=== PATIENT | female | born 1970 | race Caucasian/White ===

== ENCOUNTER 2017-09-02 09:03 | Inpatient (IN) | payer OTHER ==
[2017-09-02 09:33] VITALS: BMI 54.3
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
[2017-09-02] MEDS ORDERED: LOPERAMIDE HCL 2 MG CAPSULE PO PRN (12:07)
[2017-09-02] MEDS ORDERED: guaiFENesin/D-METHORPHAN HB 10 ML UNIT-DOSE CUPS PO PRN (12:07)
[2017-09-02] MEDS ORDERED: IBUPROFEN 400 MG TABLET (FP) PO PRN (12:07)
[2017-09-02] MEDS ORDERED: P-EPHED 60MG/TRIPROLIDI 2.5MG TABLET PO PRN (12:07)
[2017-09-02] MEDS ORDERED: MAGNESIUM CITRATE 300 ML BOTTLE PO PRN (12:07)
[2017-09-02] MEDS ORDERED: MAGNESIUM HYDROX 2400MG/30ML ORAL SUSPENSION 30 ML CUP PO PRN (12:07)
[2017-09-02] MEDS ORDERED: MAG HYDROX/AL HYDROX/SIMETH 30 ML UNIT-DOSE CUP PO PRN (12:07)
[2017-09-02] MEDS ORDERED: ACETAMINOPHEN 325 MG TABLET (FP) PO PRN (12:07)
[2017-09-02] MEDS ORDERED: MENTHOL/PHENOL 1 EACH UD MM PRN (12:07)
[2017-09-02] MEDS ORDERED: METHADONE HCL 10 MG TABLET (FOR DETOX USE ONLY) PO ONE ×2 (13:00→23:00)
[2017-09-02] MEDS: diazePAM 5 MG TABLET PO PRN ×3 (13:03→22:40)
[2017-09-02] MEDS: NICOTINE 21 MG/24 HOURS TOPICAL PATCH TD SCH (13:05)
[2017-09-02 17:59] LABS: URINE APPEARANCE CLEAR; URINE BILIRUBIN NEGATIVE (<2.0 mg/dL); URINE COLOR YELLOW; URINE GLUCOSE (UA) NEGATIVE (NEGATIVE); URINE KETONE NEGATIVE (NEGATIVE); URINE LEUK ESTERASE NEGATIVE (NEGATIVE); URINE NITRITE NEGATIVE (NEGATIVE); URINE PROTEIN NEGATIVE (NEGATIVE); URINE UROBILINOGEN NEGATIVE mg/dL (0.2-1.0)
[2017-09-02] MEDS ORDERED: MELATONIN 5 MG TABLETS PO PRN (22:00)
[2017-09-02] MEDS: THIAMINE HCL 100 MG TABLET (FP) PO SCH (22:36)
[2017-09-03] MEDS: diazePAM 5 MG TABLET PO PRN ×3 (05:53→18:03)
[2017-09-03] MEDS ORDERED: METHADONE HCL 10 MG TABLET (FOR DETOX USE ONLY) PO ONE (10:00)
[2017-09-03] MEDS: PRENATAL VITAMINS W/ FOLIC ACID TABLET (FP) PO SCH (10:44)
[2017-09-03] MEDS: NICOTINE 21 MG/24 HOURS TOPICAL PATCH TD SCH (10:44)
[2017-09-03 11:15] LABS: HEMATOCRIT 39.6 % (32.4-45.2); HEMOGLOBIN 13.4 GM/dL (10.7-15.3); MCH 31.5 pg (25.7-33.7); MCHC 33.7 g/dl (32.0-36.0); MEAN CELL VOLUME 93.3 fl (80-96); MEAN PLT VOLUME 7.5 fl (7.5-11.1); PLATELET COUNT 236 K/MM3 (134-434); RBC 4.25 M/mm3 (3.60-5.2); RDW 14.7 % (11.6-15.6); WHITE BLOOD COUNT 8.8 K/mm3 (4.0-10.0)
[2017-09-03 11:21] LABS: ALBUMIN 3.1 g/dl (3.4-5.0); ANION GAP 4 (8-16); BLOOD UREA NITROGEN 12 mg/dL (7-18); CALCIUM 8.5 mg/dL (8.5-10.1); CHLORIDE 105 mmol/L (98-107); CO2 30 mmol/L (21-32); GLUCOSE,RANDOM 98 mg/dL (74-106); POTASSIUM 4.1 mmol/L (3.5-5.1); SGOT/AST 14 U/L (15-37); SGPT/ALT 23 U/L (12-78); SODIUM 139 mmol/L (136-145)
[2017-09-03] MEDS ORDERED: COLLOIDAL OATMEAL 1 BAR EACH TP PRN (12:45)
[2017-09-03 13:10] LABS: ALK PHOS 99 U/L (45-117); BILIRUBIN,TOTAL 0.3 mg/dL (0.2-1.0); TOT PROT 6.2 g/dl (6.4-8.2)
[2017-09-03 13:43] LABS: CREATININE 0.6 mg/dL (0.55-1.02)
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
--- NOTE | 2017-09-03 15:19 | PN ---
BHS COWS - Scale Resting Pulse: 0= [place] 80 or Below Sweatin= Chills/Flushing Restless Observation: 1= Difficult to Sit Still Pupil Size: 1= Pupils >than Normal Bone or Joint Aches: 2= Severe Diffuse Aches Runny Nose/ Eye Tearin= Nasal Congestion GI Upset > 30mins: 1= Stomach Cramp Tremor Observation of Outstretched Hands: 2= Slight Tremor Visible Yawning Observation: 1= 1-2x During Session Anxiety or Irritability: 1=Feels Anxious/Irritable Goose Flesh Skin: 0=Smooth Skin COWS Score: 11 BHS Progress Note (SOAP) Subjective: joints pain body ache sweat tremor gi distress right sling in place patient is able to dress herself and rotate right shoulder Objective: 09/03/17 15:18 Vital Signs Temperature 99.3 F 09/03/17 13:13 Pulse Rate 84 09/03/17 13:13 Respiratory Rate 18 09/03/17 13:13 Blood Pressure 114/76 09/03/17 13:13 O2 Sat by Pulse Oximetry (%) Laboratory Last Values WBC 8.8 K/mm3 (4.0-10.0) 09/03/17 07:30 RBC 4.25 M/mm3 (3.60-5.2) 09/03/17 07:30 Hgb 13.4 GM/dL (10.7-15.3) 09/03/17 07:30 Hct 39.6 % (32.4-45.2) 09/03/17 07:30 MCV 93.3 fl (80-96) 09/03/17 07:30 MCH 31.5 pg (25.7-33.7) 09/03/17 07:30 MCHC 33.7 g/dl (32.0-36.0) 09/03/17 07:30 RDW 14.7 % (11.6-15.6) 09/03/17 07:30 Plt Count 236 K/MM3 (134-434) 09/03/17 07:30 MPV 7.5 fl (7.5-11.1) 09/03/17 07:30 Sodium 139 mmol/L (136-145) 09/03/17 07:30 Potassium 4.1 mmol/L (3.5-5.1) 09/03/17 07:30 Chloride 105 mmol/L (98-107) 09/03/17 07:30 Carbon Dioxide 30 mmol/L (21-32) 09/03/17 07:30 Anion Gap 4 (8-16) L 09/03/17 07:30 BUN 12 mg/dL (7-18) 09/03/17 07:30 Creatinine 0.6 mg/dL (0.55-1.02) 09/03/17 07:30 Creat Clearance w eGFR > 60 (>60) 09/03/17 07:30 Random Glucose 98 mg/dL (74-106) 09/03/17 07:30 Calcium 8.5 mg/dL (8.5-10.1) 09/03/17 07:30 Total Bilirubin 0.3 mg/dL (0.2-1.0) 09/03/17 07:30 AST 14 U/L (15-37) L 09/03/17 07:30 ALT 23 U/L (12-78) 09/03/17 07:30 Alkaline Phosphatase 99 U/L (45-117) 09/03/17 07:30 Total Protein 6.2 g/dl (6.4-8.2) L 09/03/17 07:30 Albumin 3.1 g/dl (3.4-5.0) L 09/03/17 07:30 Urine Color Yellow 09/02/17 Unknown Urine Appearance Clear 09/02/17 Unknown Urine pH 5.0 (5.0-8.0) 09/02/17 Unknown Ur Specific [place] 1.024 (1.001-1.035) 09/02/17 Unknown Urine Protein Negative (NEGATIVE) 09/02/17 Unknown Urine Glucose (UA) Negative (NEGATIVE) 09/02/17 Unknown Urine Ketones Negative (NEGATIVE) 09/02/17 Unknown Urine Blood Negative (NEGATIVE) 09/02/17 Unknown Urine Nitrite Negative (NEGATIVE) 09/02/17 Unknown Urine Bilirubin Negative (<2.0 mg/dL) 09/02/17 Unknown Urine Urobilinogen Negative mg/dL (0.2-1.0) 09/02/17 Unknown Ur Leukocyte Esterase Negative (NEGATIVE) 09/02/17 Unknown RPR Titer Nonreactive (NONREACTIVE) 09/03/17 07:30 HIV 1&2 Antibody Screen Negative 09/03/17 07:30 HIV P24 Antigen Negative 09/03/17 07:30 lab noted Assessment: 09/03/17 15:18 withdrawal sx Plan: continue detox
[2017-09-03] MEDS: CITALOPRAM HYDROBROMIDE 20 MG TABLET (FP) PO SCH (18:01)
[2017-09-04] MEDS: diazePAM 5 MG TABLET PO PRN ×2 (08:08→16:55)
[2017-09-04] MEDS: THIAMINE HCL 100 MG TABLET (FP) PO SCH ×2 (08:42→22:06)
[2017-09-04] MEDS: OLANZapine 10 MG TABLET PO SCH ×2 (08:42→22:06)
[2017-09-04] MEDS: DIVALPROEX SODIUM 500 MG TABLET E.C. PO SCH ×3 (08:42→22:06)
[2017-09-04] MEDS: QUEtiapine FUMARATE 400 MG TABLET PO SCH ×2 (08:42→22:06)
[2017-09-04] MEDS ORDERED: METHADONE HCL 5 MG TABLET (FOR DETOX USE ONLY) PO ONE (10:00)
[2017-09-04] MEDS: CITALOPRAM HYDROBROMIDE 20 MG TABLET (FP) PO SCH (10:43)
[2017-09-04] MEDS: NICOTINE 21 MG/24 HOURS TOPICAL PATCH TD SCH (10:44)
[2017-09-04] MEDS: PRENATAL VITAMINS W/ FOLIC ACID TABLET (FP) PO SCH (10:46)
--- NOTE | 2017-09-04 13:30 | PN ---
BHS COWS - Scale Resting Pulse: 2= [place] 101-120 Sweatin= Chills/Flushing Restless Observation: 3= Extraneous Movement Pupil Size: 1= Pupils >than Normal Bone or Joint Aches: 2= Severe Diffuse Aches Runny Nose/ Eye Tearin= Runny Nose/Eyes GI Upset > 30mins: 3= Vomiting/Diarrhea Tremor Observation of Outstretched Hands: 2= Slight Tremor Visible Yawning Observation: 1= 1-2x During Session Anxiety or Irritability: 2=Irritable/Anxious Goose Flesh Skin: 0=Smooth Skin COWS Score: 19 S Progress Note (SOAP) Subjective: ALERT,IRRITABLE,ANXIOUS,INTERRUPTED SLEEP,TREMOR,PAIN IN THE BODY AND BACK Objective: 09/04/17 13:28 Vital Signs Temperature 97.8 F 09/04/17 11:13 Pulse Rate 109 H 09/04/17 11:13 Respiratory Rate 18 09/04/17 11:13 Blood Pressure 112/73 09/04/17 11:13 O2 Sat by Pulse Oximetry (%) Laboratory Last Values WBC 8.8 K/mm3 (4.0-10.0) 09/03/17 07:30 RBC 4.25 M/mm3 (3.60-5.2) 09/03/17 07:30 Hgb 13.4 GM/dL (10.7-15.3) 09/03/17 07:30 Hct 39.6 % (32.4-45.2) 09/03/17 07:30 MCV 93.3 fl (80-96) 09/03/17 07:30 MCH 31.5 pg (25.7-33.7) 09/03/17 07:30 MCHC 33.7 g/dl (32.0-36.0) 09/03/17 07:30 RDW 14.7 % (11.6-15.6) 09/03/17 07:30 Plt Count 236 K/MM3 (134-434) 09/03/17 07:30 MPV 7.5 fl (7.5-11.1) 09/03/17 07:30 Sodium 139 mmol/L (136-145) 09/03/17 07:30 Potassium 4.1 mmol/L (3.5-5.1) 09/03/17 07:30 Chloride 105 mmol/L (98-107) 09/03/17 07:30 Carbon Dioxide 30 mmol/L (21-32) 09/03/17 07:30 Anion Gap 4 (8-16) L 09/03/17 07:30 BUN 12 mg/dL (7-18) 09/03/17 07:30 Creatinine 0.6 mg/dL (0.55-1.02) 09/03/17 07:30 Creat Clearance w eGFR > 60 (>60) 09/03/17 07:30 Random Glucose 98 mg/dL (74-106) 09/03/17 07:30 Calcium 8.5 mg/dL (8.5-10.1) 09/03/17 07:30 Total Bilirubin 0.3 mg/dL (0.2-1.0) 09/03/17 07:30 AST 14 U/L (15-37) L 09/03/17 07:30 ALT 23 U/L (12-78) 09/03/17 07:30 Alkaline Phosphatase 99 U/L (45-117) 09/03/17 07:30 Total Protein 6.2 g/dl (6.4-8.2) L 09/03/17 07:30 Albumin 3.1 g/dl (3.4-5.0) L 09/03/17 07:30 Urine Color Yellow 09/02/17 Unknown Urine Appearance Clear 09/02/17 Unknown Urine pH 5.0 (5.0-8.0) 09/02/17 Unknown Ur Specific [place] 1.024 (1.001-1.035) 09/02/17 Unknown Urine Protein Negative (NEGATIVE) 09/02/17 Unknown Urine Glucose (UA) Negative (NEGATIVE) 09/02/17 Unknown Urine Ketones Negative (NEGATIVE) 09/02/17 Unknown Urine Blood Negative (NEGATIVE) 09/02/17 Unknown Urine Nitrite Negative (NEGATIVE) 09/02/17 Unknown Urine Bilirubin Negative (<2.0 mg/dL) 09/02/17 Unknown Urine Urobilinogen Negative mg/dL (0.2-1.0) 09/02/17 Unknown Ur Leukocyte Esterase Negative (NEGATIVE) 09/02/17 Unknown RPR Titer Nonreactive (NONREACTIVE) 09/03/17 07:30 HIV 1&2 Antibody Screen Negative 09/03/17 07:30 HIV P24 Antigen Negative 09/03/17 07:30 Assessment: 09/04/17 13:29 WITHDRAWAL SYMPTOM Plan: CONTINUE DETOX
--- NOTE | 2017-09-04 22:13 | EKG ---
Test Reason : Blood Pressure : / mmHG Vent. Rate : 084 BPM Atrial Rate : 084 BPM P-R Int : 130 ms QRS Dur : 080 ms QT Int : 382 ms P-R-T Axes : 050 021 020 degrees QTc Int : 451 ms SINUS RHYTHM WITH PREMATURE ATRIAL COMPLEXES OTHERWISE NORMAL ECG NO PREVIOUS ECGS AVAILABLE Confirmed by ROE EDDY, JORDON ([id number]) on 09/04/2017 10:13:05 PM Referred By: Carla Ascencio Confirmed By:JORDON AU MD
[2017-09-05] MEDS: diazePAM 5 MG TABLET PO PRN (08:32)
[2017-09-05] MEDS ORDERED: METHADONE HCL 5 MG TABLET (FOR DETOX USE ONLY) PO ONE (10:00)
[2017-09-05] MEDS: CITALOPRAM HYDROBROMIDE 20 MG TABLET (FP) PO SCH (10:50)
[2017-09-05] MEDS: NICOTINE 21 MG/24 HOURS TOPICAL PATCH TD SCH (10:51)
[2017-09-05] MEDS: PRENATAL VITAMINS W/ FOLIC ACID TABLET (FP) PO SCH (10:51)
[2017-09-05] MEDS: DIVALPROEX SODIUM 500 MG TABLET E.C. PO SCH ×2 (10:51→22:09)
--- NOTE | 2017-09-05 11:13 | PN ---
BHS Progress Note (SOAP) Subjective: ALERT,IRRITABLE,ANXIOUS,INTERRUPTED SLEEP,PAIN IN THE BODY AND BACK Objective: 09/05/17 11:12 Vital Signs Temperature 98.2 F 09/05/17 08:45 Pulse Rate 104 H 09/05/17 08:45 Respiratory Rate 18 09/05/17 08:45 Blood Pressure 122/73 09/05/17 08:45 O2 Sat by Pulse Oximetry (%) Assessment: 09/05/17 11:12 WITHDRAWAL SYMPTOM Plan: CONTINUE DETOX
[2017-09-05] MEDS: hydrOXYzine PAMOATE 25 MG CAPSULE (FP) PO PRN ×2 (12:44→17:37)
--- NOTE | 2017-09-05 19:40 | PN ---
BHS Progress Note Note: c/o nausea, anxiety and continued withdrawal symptoms. Will increase Vistaril from 25 mg to 50 mg.
[2017-09-05] MEDS: hydrOXYzine PAMOATE 50 MG CAPSULE (FP) PO PRN (19:51)
[2017-09-05] MEDS: OLANZapine 10 MG TABLET PO SCH (22:09)
[2017-09-05] MEDS: QUEtiapine FUMARATE 400 MG TABLET PO SCH (22:09)
[2017-09-05] MEDS: THIAMINE HCL 100 MG TABLET (FP) PO SCH (22:09)
[2017-09-06] MEDS ORDERED: METHADONE HCL 10 MG TABLET (FOR DETOX USE ONLY) PO ONE (10:00)
[2017-09-06] MEDS: CITALOPRAM HYDROBROMIDE 20 MG TABLET (FP) PO SCH (10:21)
[2017-09-06] MEDS: PRENATAL VITAMINS W/ FOLIC ACID TABLET (FP) PO SCH (10:22)
[2017-09-06] MEDS: NICOTINE 21 MG/24 HOURS TOPICAL PATCH TD SCH (10:22)
[2017-09-06] MEDS: DIVALPROEX SODIUM 500 MG TABLET E.C. PO SCH ×2 (10:22→22:41)
--- NOTE | 2017-09-06 10:50 | PN ---
S Progress Note (SOAP) Subjective: alert,irritable,anxious,interrupted sleep,nausea,vomiting Objective: 09/06/17 10:48 Vital Signs Temperature 98.2 F 09/06/17 07:18 Pulse Rate 88 09/06/17 07:18 Respiratory Rate 18 09/06/17 07:18 Blood Pressure 94/55 09/06/17 07:18 O2 Sat by Pulse Oximetry (%) Assessment: 09/06/17 10:49 withdrawal symptom Plan: continue detox,zofran 4 mgs sl prn q 4hrs for nausea and vomiting
[2017-09-06] MEDS: hydrOXYzine PAMOATE 50 MG CAPSULE (FP) PO PRN ×2 (12:58→17:46)
[2017-09-06] MEDS: ONDANSETRON *ODT* 4 MG TABLET SL PRN ×2 (17:10→22:13)
[2017-09-06] MEDS: OLANZapine 10 MG TABLET PO SCH (22:41)
[2017-09-06] MEDS: THIAMINE HCL 100 MG TABLET (FP) PO SCH (22:41)
[2017-09-06] MEDS: QUEtiapine FUMARATE 400 MG TABLET PO SCH (22:41)
[2017-09-07] MEDS ORDERED: METHADONE HCL 5 MG TABLET (FOR DETOX USE ONLY) PO ONE (06:00)
[2017-09-07] MEDS: ONDANSETRON *ODT* 4 MG TABLET SL PRN ×2 (08:35→14:15)
--- NOTE | 2017-09-07 09:01 | PN ---
S Progress Note (SOAP) Subjective: alert,no complaint Objective: 09/07/17 09:00 Vital Signs Temperature 98.2 F 09/07/17 06:06 Pulse Rate 71 09/07/17 06:06 Respiratory Rate 16 09/07/17 06:06 Blood Pressure 108/66 09/07/17 06:06 O2 Sat by Pulse Oximetry (%) Assessment: 09/07/17 09:00 detox completed,no withdrawal symptom Plan: discharge today,follow up with after care program as arrangement
--- NOTE | 2017-09-07 09:05 | DS ---
[facility] Detox Discharge Summary Admission Date: 09/02/17 Discharge Date: 09/07/17 - History Present History: Cocaine Dependence, Opioid Dependence Pertinent Past History: nicotine dependence morbid obesity - Physical Exam Results Vital Signs: Vital Signs Temperature 98.2 F 09/07/17 06:06 Pulse Rate 71 09/07/17 06:06 Respiratory Rate 16 09/07/17 06:06 Blood Pressure 108/66 09/07/17 06:06 O2 Sat by Pulse Oximetry (%) - Treatment Hospital Course: Detox Protocol Followed, Detoxed Safely, Responded well, Discharged Condition Good, Rehab Referral Accepted Patient has Accepted a Rehab Referral to: [facility] - Medication Discharge Medications: Ambulatory Orders Citalopram Hydrobromide [Celexa -] 40 mg PO DAILY 09/02/17 Divalproex Sodium 500 mg PO BID 09/02/17 Olanzapine 10 mg PO DAILY 09/02/17 Quetiapine Fumarate [Seroquel -] 400 mg PO HS 09/02/17 Zolpidem Tartrate [Ambien] 10 mg PO HS 09/02/17 - Diagnosis (1) Opioid dependence with withdrawal Current Visit: Yes Status: Acute (2) Marijuana dependence Current Visit: Yes Status: Chronic (3) Nicotine dependence Current Visit: Yes Status: Chronic Qualifiers: Nicotine product type: cigarettes Substance use status: uncomplicated Qualified Code(s): F17.210 - Nicotine dependence, cigarettes, uncomplicated (4) Obesity, morbid, BMI 50 or higher Current Visit: Yes Status: Chronic - AMA Did Patient Leave Against Medical Advice: No
[2017-09-07 10:08] VITALS: BP 117/78; PULSE 113; TEMP 96.5
[2017-09-07] MEDS: NICOTINE 21 MG/24 HOURS TOPICAL PATCH TD SCH (10:12)
[2017-09-07] MEDS: PRENATAL VITAMINS W/ FOLIC ACID TABLET (FP) PO SCH (10:12)
[2017-09-07] MEDS: CITALOPRAM HYDROBROMIDE 20 MG TABLET (FP) PO SCH (10:12)
[2017-09-07] MEDS: DIVALPROEX SODIUM 500 MG TABLET E.C. PO SCH (10:12)
[2017-09-07] MEDS: hydrOXYzine PAMOATE 50 MG CAPSULE (FP) PO PRN (10:12)
== END 2017-09-07 02:15 | disposition home or self-care (01) | DRG 773 ==
LOC: YASAS 09:03 → Y6N 11:47
PROVIDERS: ADMIT Family Medicine Addiction Medicine; ATTEND Family Medicine Addiction Medicine
PROC: HZ2ZZZZ Detoxification Services for Substance Abuse Treatment (ICD-10-PCS; principal; 2017-09-02)
DX: F11.23 Opioid dependence with withdrawal (principal); F12.20 Cannabis dependence, uncomplicated; F17.210 Nicotine dependence, cigarettes, uncomplicated; F31.9 Bipolar disorder, unspecified; F19.24 Other psychoactive substance dependence with psychoactive substance-induced mood disorder; F19.282 Other psychoactive substance dependence with psychoactive substance-induced sleep disorder; F20.9 Schizophrenia, unspecified; F32.9 Major depressive disorder, single episode, unspecified; E66.01 Morbid (severe) obesity due to excess calories; Z68.43 Body mass index [BMI] 50.0-59.9, adult
CPT/HCPCS: 36415; 80053; 81003; 85027; 86593; 87389; 93005; 93010; Q0162